=== PATIENT | female | born 1965 | race Caucasian/White ===

== ENCOUNTER 2025-02-05 10:27 | Emergency (ER) | payer OTHER, SELFPAY ==
[2025-02-05 10:31] VITALS: BP 156/78; PULSE 87; TEMP 36.9; O2SAT 99; BMI 31.5
--- NOTE | 2025-02-05 10:39 | ED.GENADUL1 ---
HPI HPI - General Adult General Chief complaint: Nausea/Vomiting/Diarrhea Stated complaint: ABDOMINAL PAIN Time Seen by Provider: 02/05/25 10:32 Source: patient Mode of arrival: walk-in History of Present Illness HPI narrative: 59-year-old female presents to the emergency department for nausea vomiting and diarrhea. This began 3 days ago and she has had a lot of liquid diarrhea. No hematemesis or melena or hematochezia. No recent hospitalizations or antibiotic usage. Nobody at work and nobody in her home is ill either. Related Data Home Medications ?Medication ?Instructions ?Recorded ?Confirmed levothyroxine 50 mcg tablet 50 mcg PO QAM 02/05/25 02/05/25 liothyronine 5 mcg tablet 10 mcg PO QAM 02/05/25 02/05/25 lisinopril 10 1 tab PO QAM 02/05/25 02/05/25 mg-hydrochlorothiazide 12.5 mg tablet Previous Rx's ?Medication ?Instructions ?Recorded dicyclomine 10 mg capsule 10 mg PO QID PRN abdominal pain 02/05/25 #20 caps Allergies Allergy/AdvReac Type Severity Reaction Status Date / Time No Known Drug Allergies Allergy Verified 02/05/25 10:34 Review of Systems ROS Narrative A ten point review of systems is negative except as noted above. [facility] Medical History (Updated 02/05/25 @ 11:57 by Alek Odonnell MD) Ronni's disease ?E06.3 - Autoimmune thyroiditis (ICD-10) Social History Little interest or pleasure in doing things: not at all Feeling down, depressed, or hopeless: not at all Exam Narrative Exam Narrative: Nurses note and vital signs reviewed and patient is not hypoxic. General: The patient appears well and in no apparent distress. Patient is resting comfortably on cart. Skin: Warm, dry, no pallor noted. There is no rash noted. Head: Normocephalic, atraumatic Eye: Normal conjunctiva, no drainage Ears, Nose, Mouth, and Throat: oral mucosa is slightly dry. Nares patent. Cardiovascular: Regular Rate and Rhythm Respiratory: Patient is in no distress, no accessory muscle use, lungs are clear to auscultation, no wheezing, rales or rhonchi Back: non-tender GI: Soft with minimal tenderness and no distention Musculoskeletal: The patient has no evidence of calf tenderness, no pitting edema, symmetrical pulses noted bilaterally Neurological: A&O, normal speech Psychiatric: Cooperative Constitutional Vital Signs, click to edit/add: Last Vital Signs Temp 98.4 F 02/05/25 10:31 Pulse 87 02/05/25 10:31 Resp 18 02/05/25 10:31 BP 118/64 02/05/25 11:05 Pulse Ox 99 02/05/25 10:31 O2 Del Method Room Air 02/05/25 10:31 Course Vital Signs Vital signs: Vital Signs Temperature 98.4 F 02/05/25 10:31 Pulse Rate 87 02/05/25 10:31 Respiratory Rate 18 02/05/25 10:31 Blood Pressure 156/78 H 02/05/25 10:31 Pulse Oximetry 99 02/05/25 10:31 Oxygen Delivery Method Room Air 02/05/25 10:31 Temperature 98.4 F 02/05/25 10:31 Pulse Rate 87 02/05/25 10:31 Respiratory Rate 18 02/05/25 10:31 Blood Pressure 118/64 02/05/25 11:05 Pulse Oximetry 99 02/05/25 10:31 Oxygen Delivery Method Room Air 02/05/25 10:31 Medical Decision Making MDM Narrative Medical decision making narrative: Blood work is essentially normal and she was given IV fluids. She was unable to provide us with a stool specimen at this point. She is able to be discharged home and was prescribed Bentyl. Treatment diagnosis and follow-up were discussed with the patient. Differential Diagnosis Differential Diagnosis: Dehydration, gastroenteritis, food poisoning Lab Data Lab results reviewed: Yes I reviewed the patient's lab results Labs: Lab Results 02/05/25 Range/Units 10:47 WBC 7.6 (4.0-11.0) 10^3/uL RBC 4.28 (4.20-5.40) 10^6/uL Hgb 11.5 L (12.0-16.0) g/dL Hct 34.9 L (36.0-48.0) % MCV 81.5 (81.0-99.0) fL MCH 26.9 (26.7-34.0) pg MCHC 33.0 (29.9-35.2) g/dL RDW 13.1 (11.0-15.0) % Plt Count 349 (150-450) 10^3/uL MPV 9.4 L (9.5-13.5) fL Neut % (Auto) 75.1 H (43.0-75.0) % Lymph % (Auto) 14.4 L (20.5-60.0) % [place]ata[place] % (Auto) 8.2 (1.7-12.0) % Eos % (Auto) 1.7 (0.9-7.0) % Baso % (Auto) 0.3 (0.2-2.0) % Neut # (Auto) 5.7 (1.4-6.5) 10^3/uL Lymph # (Auto) 1.1 L (1.2-3.8) 10^3/uL [place] # (Auto) 0.6 (0.3-0.8) 10^3/uL Eos # (Auto) 0.1 (0.0-0.7) 10^3/uL Baso # (Auto) 0.0 (0.0-0.1) 10^3/uL Abs Immat Gran (auto) 0.02 (0.00-0.03) 10^3/uL Imm/Tot Granulo (auto) 0.3 (0.0-0.5) % Sodium 136 (136-145) mmol/L Potassium 3.3 L (3.5-5.1) mmol/L Chloride 97 L (98-107) mmol/L Carbon Dioxide 26.8 (21.0-32.0) mmol/L Anion Gap 15.5 BUN 10.0 (7.0-18.0) mg/dL Creatinine 0.85 (0.55-1.02) mg/dL Est GFR ( Amer) >60 (>=60 mL/min/1.73m^2) Est GFR (Non-Af Amer) >60 (>=60 mL/min/1.73m^2) BUN/Creatinine Ratio 11.8 Glucose 92 (74-106) mg/dL Calcium 9.2 (8.5-10.1) mg/dL Discharge Plan Discharge Chief Complaint: Nausea/Vomiting/Diarrhea Clinical Impression: Gastroenteritis Patient Disposition: Home, Self-Care Time of Disposition Decision: 11:57 Condition: Good Mode of Transportation: Private Vehicle Prescriptions / Home Meds: New dicyclomine 10 mg capsule 10 mg PO QID PRN (Reason: abdominal pain) Qty: 20 0RF No Action liothyronine 5 mcg tablet 10 mcg PO QAM lisinopril-hydrochlorothiazide 10-12.5 mg tablet 1 tab PO QAM levothyroxine 50 mcg tablet 50 mcg PO QAM Print Language: Uzbek Instructions: Acute Diarrhea (ED) Referrals: GARTH GUAMAN [Primary Care Provider, Unknown] - 1 week
--- OUTSIDE RECORDS SUMMARY | 2025-02-05 10:42 | XMS_ITS | Clinical Summary ---
Author Organization [employer] Address [id number] [address] [place] [address] Care Team Providers Care Ticker Installer Name Role Phone Tramaine Faust APRN-MANAGER FILM Primary Care Provider + Allergies No known active allergies Medications irasjjz-vmja-yjkrn- oreg-capryl 100 mg-150 mg- 50 mg-150 mg capsule Take by mouth. Active B-complex with vitamin C tablet Take 1 tablet by mouth in the morning. Active ra-yrs-F-glutamin-l ysine-hb124 (A[place]ORNE, LYSINE HCL,) 1,000-50 mg tablet, effervescent Take by mouth. Active magnesium (MAGTAB) 84 mg tablet extended release CR tablet Take 1 tablet (84 mg total) by mouth in the morning. Active liothyronine (CYTOMEL) 5 MCG tabletIndications:A cquired hypothyroidism Take 2 tablets (10 mcg total) by mouth in the morning. 180 tablet 1 5 Active lisinopril-hydroCHL OROthiazide (PRINZIDE,ZESTORETI C) 10-12.5 mg per tabletIndications:E ssential hypertension TAKE 1 TABLET BY MOUTH EVERY DAY IN THE MORNING 90 tablet 1 5 Active levothyroxine (SYNTHROID, LEVOTHROID) 50 MCG tabletIndications:A cquired hypothyroidism Take 1 tablet (50 mcg total) by mouth in the morning. 90 tablet 1 5 Active Active Problems Problem Noted Date Diagnosed Date Hypothyroidism 03/09/2022 Malignant neoplasm of cervix 03/09/2022 Visceral obesity 11/08/2021 Obesity (BMI 30.0-34.9) 11/08/2021 Atrophic skin 11/08/2021 Encounters Date Type Department Care Team Description 01/07/2025 Orders Only [facility] [address] [place] [address] Tatiana Bettencourt CMA Encounter for screening mammogram for malignant neoplasm of breast 12/19/2024 Results Follow-Up [facility] [address] [place] [address] Tramaine Faust, SENIOR MARKETING ASSOCIATE-JEFF TSH, Hemoglobin A1c, Lipid profile, Additional followed-up results: 3 11/11/2024 Telephone [facility] [address] [place] [address] Mitzi Gardiner CMA 11/10/2024 9:00 AM EDT Office Visit [facility] [address] [place] [address] Zora Cardona, SENIOR MARKETING ASSOCIATE-MANAGER FILM Annual physical exam (Primary Dx); Blood tests for routine general physical examination; Acquired hypothyroidism; Essential hypertension; Encounter for screening mammogram for malignant neoplasm of breast; Special screening for malignant neoplasm of colon 11/10/2024 Travel from Last 3 Months Immunizations Immunization Administration Dates Next Due Influenza, Im Flucelvax (Pf) 03/07/2017 Influenza, Injectable, Quadrivalent 03/20/2018,1 Influenza, Injectable, quadrivalent (PF) 023,07/14/2021 Influenza, Recombinant, Quad rivalent, Injectable, Preserv 02/24/2022 Influenza, Unspecified 03/01/2007 Zoster Vaccine Recombinant 09/14/2022,02/24/2022 Family History Medical History Relation Name Comments Other Brother Depression Daughter 1 Depression Daughter 2 Depression Daughter 3 Arthritis Father Diabetes Father Hyperlipidemia Father Hypertension Father Colon cancer Mother Hyperlipidemia Mother Colon polyps Sister 1 Diabetes Sister 1 Hypertension Sister 1 No Known Problems Sister 2 No Known Problems Son Relation Name Status Comments Brother Alive Blood Cancer Daughter 1 Alive Daughter 2 Alive Daughter 3 Alive Father Alive Mother Sister 1 Alive Sister 2 Alive Son Alive Social History Tobacco Use Types Packs/Day Years Used Date Smoking Tobacco: Never Smokeless Tobacco: Never Alcohol Use Standard Drinks/Week Comments Yes 5 (1 standard drink = 0.6 oz pur e alcohol) Social Connection and Isolat ion Panel [NHANES] Answer Date Recorded In a typical week, how many times do you talk on the phone with family, friends, or neighbors? Twice a week 03/09/2022 How often do you get togethe r with friends or relatives? Three times a week 03/09/2022 How often do you attend chur [employer] or faith services? More than 4 times per year 03/09/2022 Do you belong to any clubs o r organizations such as jain groups, unions, fraternal or athletic groups, or school groups? No 03/09/2022 How often do you attend meet ings of the clubs or organizations you belong to? Never 03/09/2022 Are you , , di vorced, , never , or living with a partner? 03/09/2022 AUDIT-C Answer Date Recorded Q1: How often do you have a drink containing alc ohol? 2-4 times a month 03/09/2022 Q2: How many drinks containi ng alcohol do you have on a typical day when you are drinking? 1 or 2 03/09/2022 Q3: How often do you have si x or more drinks on one occasion? Never 03/09/2022 Overall Financial Resource Strain (CARDIA) Answe r Date Recorded How hard is it for you to pa y for the very basics like food, housing, medical care, and heating? Not very hard 03/09/2022 PHQ-2 Answer Date Recorded Total Score 0 11/10/2024 [facility] - Occupational Stress Questionnaire Answer Date Recorded Do you feel stress - tense, restless, nervous, or anxious, or unable to sleep at night because your mind is troubled all the time - these days? To some extent 03/09/2022 Exercise Vital Sign Answer Date Recorde d On average, how many days pe r week do you engage in moderate to strenuous exercise (like a brisk walk)? 4 days 03/09/2022 On average, how many minutes do you engage in exercise at this level? 30 min 03/09/2022 PRAPARE - Transportation Answer Date Re corded In the past 12 months, has l ack of transportation kept you from medical appointments or from getting medications? No 02/19 In the past 12 months, has l ack of transportation kept you from meetings, work, or from getting things needed for daily living? No 03/09/2022 Childcare Answer Date Recorded Do problems getting child ca re make it difficult for you to work or study? No 03/09/2022 Employment Answer Date Recorded Do you need help finding a [employer] career center and/or a training program? No 03/09/2022 Hunger Screening Answer Date Recorded Within the past 12 months we worried whether our food would run out before we got money to buy more. Never True 11/10/2024 Within the past 12 months th e food we bought just didn't last and we didn't have money to get more. Never True 11/10/2024 Purpose - Life Answer Date Recorded I have a purpose and direction in my life. Agree 03/09/2022 Education Answer Date Recorded What is the highest level of school you have completed or the highest degree you have received? Master's degree (e.g., MA, MS, Griselda, MEd, PRIMARY SCHOOL TEACHER, JOYCE) 11/30/2020 Comments Unknown Sex and Gender Information Value Date Recorded Sex Assigned at Female 07/10/2021 10:33 AM EST Legal Sex Female 12:25 PM EDT Gender Identity Female 07/10/2021 10:33 AM EST Sexual Orientation Bisexual 07/10/2021 10 :33 AM EST Last Filed Vital Signs Vital Sign Reading Time Taken Comments Blood Pressure 100/60 11/10/2024 8:56 AM EDT Pulse 83 11/10/2024 8:56 AM EDT Temperature 36.9 C (98.4 F) 11/10/2024 8:56 AM EDT Respiratory Rate 18 11/10/2024 8:56 AM EDT Oxygen Saturation 99% 11/10/2024 8:56 AM EDT Inhaled Oxygen Concentration - - Weight 79.9 kg (176 lb 3.2 oz) 11/10/2024 8:56 A M EDT Height 157.5 cm (5' 2.01 ) 11/10/2024 8:56 AM ED T Body Mass Index 32.22 11/10/2024 8:56 AM EDT Plan of Treatment Health Maintenance Due Date Last Done Comments DTaP,Tdap and Td Vaccines (1 - Tdap) 1982 COVID-19 Vaccine (5 - 2024-2 6 season) 2025 02/24/2022, 03/25/2021, 07/23/2020, Additional history exists Influenza Vaccine 01/19/2025 04/11/2023, , 07/14/2021, Additional history exists Adult BMI Follow Up Plan 11/10/2025 11/10/2024 Adult BMI Screening 11/10/2025 11/10/2024 Depression Screening 11/10/2025 11/10/2024 Tobacco Screening 11/10/2025 11/10/2024 Mammogram 01/07/2026 01/07/2025, 12/19, 01/11/2021, Additional history exists Pap Smear 04/17/2026 04/17/2023, 04/17/2023 Colonoscopy 01/11/2031 01/11/2021, 12, 05/19/2015 Zoster (Shingles) Vaccine Completed 09/14/2022, 11/2021 Medical Devices Not on file Procedures Procedure Name Priority Date/Time Associated Diagnosis Comments MAMM SCREENING BILATERAL W CAD Routine 01/07/2025 4:03 PM EDT Encounter for screening mammogram for malignant neoplasm of breast COLOGUARD NON-[place] Routine 12/12/2024 6:15 AM EDT Special screening for malignant neoplasm of colon COMPREHENSIVE METABOLIC PANEL Routine 11/10/2024 9:07 AM EDT Blood tests for routine general physical examination CBC WITH AUTO DIFFERENTIAL Routine 11/10/2024 9:07 AM EDT Blood tests for routine general physical examination LIPID PROFILE Routine 11/10/2024 9:07 AM EDT Blood tests for routine general physical examination HEMOGLOBIN A1C Routine 11/10/2024 9:07 AM EDT Blood tests for routine general physical examination TSH Routine 11/10/2024 9:07 AM EDT Blood tests for routine general physical examination HIGH RISK HPV W/JUVE Routine 04/17/2023 5:43 AM EST Encounter for gynecological examination (general) (routine) without abnormal findings Encounter for screening for malignant neoplasm of vagina HM COLONOSCOPY Routine 01/11/2021 from Last 3 Months or Most Recently Relevant to Health Maintenance Results * Mammography screening bilateral with CAD (01/07/2025 4:03 PM EDT) Anatomical Region Laterality Modality Breast Bilateral Mammography us Zora Cardona APRN-MANAGER FILM IM MAMMOGRAPHY ORDE RABROCIO Final Result * Cologuard Non[facility] (12/12/2024 6:15 AM EDT) EXTERNAL COLOGUARD Negative Negative 2024 8:23 AM EDT [employer] [facility] (CLIA #:[id number]) Comment: The Cologuard (TM) test was performed on this specimen. NEGATIVE TEST RESULT. A negative Cologuard result indicates a low likelihood that a colorectal cancer (CRC) or advanced adenoma (adenomatous polyps with more advanced pre-malignant features) is present. The chance that a person with a negative Cologuard test has a colorectal cancer is less than 1 in 1500 (negative predictive value >99.9%) or has an advanced adenoma is less than 5.3% (negative predictive value 94.7%). These data are based on a prospective cross-sectional study of 10,000 individuals at average risk for colorectal cancer who were screened with both Cologuard and colonoscopy. (Ovidio Fuller. et al, N Engl J Med 2014;370(14):1286- 1297) The normal value (reference range) for this assay is negative. COLOGUARD RE-SCREENING RECOMMENDATION: Periodic colorectal cancer screening is an important part of preventive healthcare for asymptomatic individuals at average risk for colorectal cancer. Following a negative Cologuard result, the [place] [employer] Society and U.S. Multi-Society Task Force screening guidelines recommend a Cologuard re-screening interval of 3 years. References: [place] [employer] Guideline for Colorectal Cancer Screening: https://www.cancer.org/cancer/cdqpn-ttczaj-otlldd/lkghwuqzt-sfzalwhxf-dhqyyib/ac s-rec ommendations.html.; Todd MENDEZ, Anam BRADSHAW, Peña PAIGE, Colorectal Cancer Screening: Recommendations for Physicians and Patients from the U.S. Multi-Society Task Force on Colorectal Cancer Screening , Am J Gastroenterology 2017; 112:3378-2695. TEST DESCRIPTION: Composite algorithmic analysis of stool DNA-biomarkers with hemoglobin immunoassay. Quantitative values of individual biomarkers are not reportable and are not associated with individual biomarker result reference ranges. Cologuard is intended for colorectal cancer screening of adults of either sex, 45 years or older, who are at average-risk for colorectal cancer (CRC). Cologuard has been approved for use by the U.S. FDA. The performance of Cologuard was established in a cross sectional study of average-risk adults aged 50-84. Cologuard performance in patients ages 45 to 49 years was estimated by sub-group analysis of near-age groups. Colonoscopies performed for a positive result may find as the most clinically significant lesion: colorectal cancer [4.0%], advanced adenoma (including sessile serrated polyps greater than or equal to 1cm diameter) [20%] or non- advanced adenoma [31%]; or no colorectal neoplasia [45%]. These estimates are derived from a prospective cross-sectional screening study of 10,000 individuals at average risk for colorectal cancer who were screened with both Cologuard and colonoscopy. (Ovidio Couch et al, N Engl J Med 2014;370(14):6328-9194.) Cologuard may produce a false negative or false positive result (no colorectal cancer or precancerous polyp present at colonoscopy follow up). A negative Cologuard test result does not guarantee the absence of CRC or advanced adenoma (pre-cancer). The current Cologuard screening interval is every 3 years. ([place] [employer] Society and U.S. Multi-Society Task Force). Cologuard performance data in a 10,000 patient pivotal study using colonoscopy as the reference method can be accessed at the following location: www.[facility]/results. Additional description of the Cologuard test process, warnings and precautions can be found at www.cologuard.com. Stool specimen (specimen) Rectum structure / Unknown 12/12/2024 6:15 AM EDT 12/13/2024 10:53 AM EDT us Zora Cardona SENIOR MARKETING ASSOCIATE-MANAGER FILM LAB ORDERABLES Camelia arroyo Result [employer] [facility] (CLIA #:[id number]) [place] [address], [place] [phone] * CBC auto differential (11/10/2024 9:07 AM EDT) WBC 4.4 4 - 11 x10E9/L 11/10/2024 6:02 PM EDT [facility] RBC Count 4.61 3.8 - 5.2 X10E12/L 11/10/2024 6:02 PM EDT [facility] Hemoglobin 13.1 11.7 - 15.5 g/dL 11/10/2024 6:02 PM EDT [facility] Hematocrit 39.3 35 - 47 % 11/10/2024 6:02 PM EDT [facility] MCV 85 80 - 100 fL 11/10/2024 6:02 PM EDT [facility] MCH 28.4 27 - 34 pg 11/10/2024 6:02 PM EDT [facility] MCHC 33.2 32 - 36 g/dL 11/10/2024 6:02 PM EDT [facility] RDW 13.6 11.5 - 15 % 11/10/2024 6:02 PM EDT [facility] Platelet Count 272 150 - 450 X10E9/L 11/10/2024 6:02 PM EDT [facility] MPV 8.3 7 - 12 fL 11/10/2024 6:02 PM EDT [facility] Neutrophils % 62.8 % 11/10/2024 6:02 PM EDT [facility] Lymphocytes % 25.4 % 11/10/2024 6:02 PM EDT [facility] Monocytes % 9.4 % 11/10/2024 6:02 PM EDT [facility] Eosinophils % 1.6 % 11/10/2024 6:02 PM EDT [facility] Basophils % 0.8 % 11/10/2024 6:02 PM EDT [facility] Neutrophils Absolute (A) 2.8 1.5 - 6.6 10*3/uL 11/10/2024 6:02 PM EDT [facility] Lymphocytes Absolute 1.1 1.0 - 3.5 10*3/uL 11/10/2024 6:02 PM EDT [facility] Monocytes Absolute 0.4 0.0 - 0.9 10*3/uL 11/10/2024 6:02 PM EDT [facility] Eosinophils Absolute 0.1 0.0 - 0.4 10*3/uL 11/10/2024 6:02 PM EDT [facility] Basophils Absolute 0.0 0.0 - 0.2 10*3/uL 11/10/2024 6:02 PM EDT [facility] Differential Type AUTOMATED DIFFERENTIAL 11/10/2024 6:02 PM EDT [facility] Blood Venous blood / Unknown 11/10/2024 9:07 AM EDT 11/10/2024 9:07 AM EDT us Zora Cardona SENIOR MARKETING ASSOCIATE-MANAGER FILM LAB BLOOD ORDERABLES Final Result [facility] [address] [place] [address], [place] [phone] * (ABNORMAL) TSH (11/10/2024 9:07 AM EDT) TSH 0.09(L) 0.49 - 4.67 uIU/mL 11/10/2024 6:20 PM EDT [facility] Blood Venous blood / Unknown 11/10/2024 9:07 AM EDT 11/10/2024 9:07 AM EDT Zora Cardona APRN-MANAGER FILM LAB BLOOD ORDERABLES Final Result [facility] [address] [place] [address], [place] [phone] * Hemoglobin A1c (11/10/2024 9:07 AM EDT) HEMOGLOBIN A1C 5.1 4.4 - 5.6 % 11/10/2024 6:22 PM EDT [facility] Comment: ADA Guidelines Result HgbA1c Normal : less than 5.7 % Prediabetes : 5.7 % to 6.4 % Diabetes : > 6.4 % Use with caution in patients with abnormal hemoglobin variants as the half-life of red blood cells and in vivo glycation rates are affected. EST. AVERAGE GLUCOSE 100 mg/dL 11/10/2024 6:22 PM EDT [facility] Blood Venous blood / Unknown 11/10/2024 9:07 AM EDT 11/10/2024 9:07 AM EDT Zora Cardona APRN-MANAGER FILM LAB BLOOD ORDERABLES Final Result [facility] [address] [place] [address], [place] [phone] * (ABNORMAL) Lipid profile (11/10/2024 9:07 AM EDT) CHOLESTEROL 215(H) 150 - 200 mg/dL 11/10/2024 6:13 PM EDT [facility] TRIGLYCERIDE 66 27 - 150 mg/dL 11/10/2024 6:13 PM EDT [facility] HDL CHOLESTEROL 70 >39 mg/dL 6:13 PM EDT [facility] Comment: HDL <40 mg/dL - High Risk HDL > or = 40mg/dL- Desirable HDL >60 mg/dL - Negative Risk LDL (CALC) 132(H) <130 mg/dL 11/10/2024 6:13 PM EDT [facility] Comment: LDL <100 mg/dL - Desirable LDL >160 mg/dL - High Risk CHOLESTEROL:HDL 3.1 1.0 - 5.0 6:13 PM EDT [facility] VERY LOW LIPOPROTEIN 13 0 - 30 mg/dL 11/10/2024 6:13 PM EDT [facility] Blood Venous blood / Unknown 11/10/2024 9:07 AM EDT 11/10/2024 9:07 AM EDT us Zora Cardona SENIOR MARKETING ASSOCIATE-MANAGER FILM LAB BLOOD ORDERABLES Final Result [facility] [address] [place] [id number], [place] [phone] * Comprehensive metabolic panel (11/10/2024 9:07 AM EDT) SODIUM 140 134 - 146 mmol/L 11/10/2024 6:13 PM EDT [facility] POTASSIUM 3.8 3.5 - 5.0 mmol/L 11/10/2024 6:13 PM EDT [facility] CHLORIDE 102 98 - 109 mmol/L 11/10/2024 6:13 PM EDT [facility] CARBON DIOXIDE 29 22 - 32 mmol/L 11/10/2024 6:13 PM EDT [facility] ANION GAP 9 5 - 15 mmol/L 11/10/2024 6:13 PM EDT [facility] BLOOD UREA NITROGEN 11 5 - 27 mg/dL 11/10/2024 6:13 PM EDT [facility] CREATININE 0.76 0.40 - 1.00 mg/dL 11/10/2024 6:13 PM EDT [facility] Comment:METHOD TRACEABLE TO IDMS STANDARD GLUCOSE 89 65 - 99 mg/dL 11/10/2024 6:13 PM EDT [facility] CALCIUM 9.6 8.5 - 10.5 mg/dL 11/10/2024 6:13 PM EDT [facility] TOTAL PROTEIN 7.0 6.0 - 8.0 g/dL 11/10/2024 6:13 PM EDT [facility] ALBUMIN 4.1 3.2 - 5.3 g/dL 11/10/2024 6:13 PM EDT [facility] ALKALINE PHOSPHATASE 40 39 - 130 U/L 11/10/2024 6:13 PM EDT [facility] AST 25 <=41 U/L 11/10/2024 6:13 PM EDT [facility] ALT 12 <=31 U/L 11/10/2024 6:13 PM EDT [facility] BILIRUBIN,TOTAL 0.5 0.3 - 1.2 mg/dL 11/10/2024 6:13 PM EDT [facility] EGFR Non-Race Dependent 89 >=60 ml/min/1.7 3sq.m 11/10/2024 6:13 PM EDT [facility] Comment: Reported eGFR is based on the CKD-EPI 2020 equation that does not use a race coefficient. Blood Venous blood / Unknown 11/10/2024 9:07 AM EDT 11/10/2024 9:07 AM EDT us Zora Cardona SENIOR MARKETING ASSOCIATE-MANAGER FILM LAB BLOOD ORDERABLES Final Result [facility] [address] [place] [address], [place] [phone] * High risk HPV w/juve (04/17/2023 5:43 AM EST) Hpv specimen type ThinPrep 04/18/2023 5:43 AM EST [facility] Hpv 16 Negative Negative^N egative 04/18/2023 1:27 PM EST [facility] Hpv 18 Negative Negative^N egative 04/18/2023 1:27 PM EST [facility] Other high risk hpv Negative Negative^N egative 04/18/2023 1:27 PM EST [facility] Comment: HPV types 31,33,35,39,45,52,56,58,59,66 and 68 DNA were undetectable. THINP 04/17/2023 5:43 AM EST 04/18/2023 5:44 AM EST us Tammy Cramer SENIOR MARKETING ASSOCIATE-MEDIUM CYCLE SALESPERSON LAB BLOOD ORDERABLES Final Result [id number] [facility], [place] [address] [facility] [address] [place] [address], [address] [place] [address] * COLONOSCOPY (01/11/2021) us Scanning Provider External HEALTH MAINTENANCE Fi nal Result MANUALLY TRANSCRIBED RESULTS from Last 3 Months or Most Recently Relevant to Health Maintenance Insurance [employer] Care Teams Ticker Installer Relationship Specialty Start Date End Date Tramaine Faust, SENIOR MARKETING ASSOCIATE-MANAGER FILM [address] [place] [address] PCP - General Internal Medicine 8/1/25
--- OUTSIDE RECORDS SUMMARY | 2025-02-05 10:42 | XMS_ITS | Encounter Summary ---
Author Organization [employer] tem Address [id number] [address] [place] [address] Care Team Providers Care Training Generalist Name Role Phone CedandieTramaine davison BUILDING CLEANER-LEAD CAREGIVER Primary Care Provider + Encounter Details Date Type Department Care Team (Late st Contact Info) Description 01/07/2025 Orders Only [facility] [address] [place] [address] Tatiana Bettencourt CMA Encounter for screening mammogram for malignant neoplasm of breast Social History Tobacco Use Types Packs/Day Years [...] 03/09/2022 How often do you attend chur ch or worship services? More than 4 times per year 03/09/2022 Do you belong to any clubs o r organizations such as latter day groups, unions, fraternal or athletic groups, or [...] Answer Date Recorded Total Score 0 11/10/2024 [facility] Health - Occupational Stress Questionnaire Answer Date [...] Recorded Do you need help finding a [place] career center and/or a training program? No [...] Master's degree (e.g., MA, MS, Griselda, MEd, GLASS ENAMEL MIXER, JOYCE) 11/30/2020 Comments Unknown Sex and Gender Information Value Date Recorded Sex Assigned at Female 07/10/2021 10:33 AM EST Legal Sex Female 12:25 PM EDT Gender Identity Female 07/10/2021 10:33 AM EST Sexual Orientation Bisexual 07/10/2021 10 :33 AM EST documented as of this encounter Plan of Treatment Not on file documented as of this encounter Procedures Procedure Name Priority Date/Time Associated Diagnosis Comments MAMM SCREENING BILATERAL W CAD Routine 01/07/2025 4:03 PM EDT Encounter for screening mammogram for malignant neoplasm of breast documented in this encounter Results * Mammography screening bilateral with CAD (01/07/2025 4:03 PM EDT) Anatomical Region Laterality Modality Breast Bilateral Mammography us Zora Cardona APRN-JEFF IMG MAMMOGRAPHY ROX ROSALES Final Result documented in this encounter Visit Diagnoses Diagnosis Encounter for screening mammogram for malignant neoplasm of breast documented in this encounter Additional Health Concerns Assessment Noted Time PHQ-9 Depression Total Score: 0 11/11/19 8:56 AM EDT A Body Mass Index follow-up plan has been documented for the patient 11/10/2024 9:34 AM EDT documented as of this encounter Care Teams Training Generalist Relationship Specialty Start Date End Date Tramaine Faust APRN-CNP [address] [place] [address] PCP - General Internal Medicine 12/19/24 documented as of this encounter
--- OUTSIDE RECORDS SUMMARY | 2025-02-05 10:42 | XMS_ITS | Clinical Summary ---
Author Organization [facility] Healthcare Address [address] [place] [address] Care Team Providers Care Paper Handler Name Role Phone Unavailable Primary Care Provider Unavailabl e Social History Tobacco Use Types Packs/Day Years Used Date Smoking Tobacco: Never Assessed Comments Unknown Sex and Gender Information Value Date Recorded Sex Assigned at Not on file Legal Sex Female 6:53 PM EDT Gender Identity Not on file Sexual Orientation Not on file Last Filed Vital Signs Vital Sign Reading Time Taken Comments Blood Pressure 121/71 06/26/2019 12:00 PM EST Pulse - - Temperature - - Respiratory Rate - - Oxygen Saturation - - Inhaled Oxygen Concentration - - Weight 81.2 kg (179 lb) 12/21/2020 12:00 PM EDT Height 157.5 cm (5' 2 ) 12/21/2020 12:00 PM EDT Body Mass Index 32.74 12/21/2020 12:00 PM EDT Plan of Treatment Not on file Insurance [employer]
--- OUTSIDE RECORDS SUMMARY | 2025-02-05 10:42 | XMS_ITS | Encounter Summary ---
Author Organization [employer] [facility] Address [id number] [place] [address] Care Team Providers Care Ticket Collector Or Usher Name Role Phone Cedandiesaman Tramaine Mullins PRINTED CIRCUIT BOARDS CONTACT PRINTER-DRAPERY SUPERVISOR Primary Care Provider + Encounter Details Date Type Department Care Team (Late st Contact Info) Description 01/31/2021 Refill [facility] [address] [place] [address] [place] [address] Carmina Beckford, GERARD Acquired hypothyroidism Social History Tobacco Use Types Packs/Day Years Used Date Smoking Tobacco: Never Smokeless Tobacco: Never Alcohol Use Standard Drinks/Week Comments Yes 5 (1 standard drink = 0.6 oz pur e alcohol) Social Connection and Isolation Panel [NHANES] A nswer Date Recorded In a typical week, how many times do you talk on the phone with family, friends, or neighbors? Twice a week 11/30/2020 How often do you get together with friends or re latives? Once a week 11/30/2020 How often do you attend hindu or yarsanism serv ices? Never 11/30/2020 Do you belong to any clubs o r organizations such as hindu groups, unions, fraternal or athletic groups, or school groups? No 11/30/2020 Attends Club or Organization Meetings Not on narcisa e 11/30/2020 Are you , , di vorced, , never , or living with a partner? 11/30/2020 AUDIT-C Answer Date Recorded Q1: How often do you have a drink containing alc ohol? 2-3 times a week 11/30/2020 Q2: How many drinks containi ng alcohol do you have on a typical day when you are drinking? 1 or 2 11/30/2020 Q3: How often do you have si x or more drinks on one occasion? Never 11/30/2020 Overall Financial Resource Strain (CARDIA) Answe r Date Recorded How hard is it for you to pa y for the very basics like food, housing, medical care, and heating? Not very hard 11/30/2020 PHQ-2 Answer Date Recorded Total Score 0 01/10/2021 [facility] - Occupational Stress Questionnaire Answer Date Recorded Do you feel stress - tense, restless, nervous, or anxious, or unable to sleep at night because your mind is troubled all the time - these days? Rather much 11/30/2020 Exercise Vital Sign Answer Date Recorde d On average, how many days pe r week do you engage in moderate to strenuous exercise (like a brisk walk)? 5 days 11/30/2020 On average, how many minutes do you engage in exercise at this level? 30 min 11/30/2020 PRAPARE - Transportation Answer Date Re corded In the past 12 months, has l ack of transportation kept you from medical appointments or from getting medications? No 11/18 In the past 12 months, has l ack of transportation kept you from meetings, work, or from getting things needed for daily living? No 11/30/2020 Childcare Answer Date Recorded Do problems getting child ca re make it difficult for you to work or study? No 11/30/2020 Employment Answer Date Recorded Do you need help finding a [facility] career center and/or a training program? No 11/30/2020 Purpose - Life Answer Date Recorded I have a purpose and direction in my life. Somew hat Agree 11/30/2020 Education Answer Date Recorded What is the highest level of school you have completed or the highest degree you have received? Master's degree (e.g., MA, MS, Griselda, MEd, DEPUTY CORONER INVESTIGATOR, JOYCE) 11/30/2020 Comments Unknown Sex and Gender Information Value Date Recorded Sex Assigned at Female 07/10/2021 10:33 AM EST Legal Sex Female 12:25 PM EDT Gender Identity Female 07/10/2021 10:33 AM EST Sexual Orientation Bisexual 07/10/2021 10 :33 AM EST COVID-19 Exposure Response Date Recorded In the last month, have you been in contact with someone who was confirmed or suspected to have Coronavirus / COVID-19? No / Unsure 01/10/2021 4:20 PM EDT documented as of this encounter Miscellaneous Notes * Telephone Encounter - Carmina Beckford CMA - 01/31/2021 3:32 PM EDT [facility] [place] - Pt needs new script, this med was entered incorrectly, pt takes 2 5cg tablets daily. Please send one month supply to local, and [facility]. * Telephone Encounter - MICHOACANO Hubbard - 01/31/2021 3:32 PM EDT Can you call her pharmacy and verify what dose she was taking prior to coming here. What was recorded in our records was reported by pateint. * Telephone Encounter - Carmina Beckford CMA - 01/31/2021 3:32 PM EDT Pt realized med was entered incorrectly, she takes 2 tablets of this medication once daily. Can youplease send new script? documented in this encounter Plan of Treatment Not on file documented as of this encounter Visit Diagnoses Diagnosis Acquired hypothyroidism Unspecified hypothyroidism documented in this encounter Additional Health Concerns Assessment Noted Time PHQ-9 Depression Total Score: 0 01/11/20 21 3:48 PM EDT A Body Mass Index follow-up plan has been documented for the patient 01/10/2021 5:16 PM EDT documented as of this encounter Care Teams Ticket Collector Or Usher Relationship Specialty Start Date End Date Tramaine Faust, MARCUS-JEFF [address] [place] [address] PCP - General Internal Medicine 12/19/24 documented as of this encounter
--- OUTSIDE RECORDS SUMMARY | 2025-02-05 10:42 | XMS_ITS | Encounter Summary ---
Author Organization [facility] Address [id number] [place] [address] Care Team Providers Care Physicist Acoustics Name Role Phone Cednilesh Tramaine Mullins TOBACCO CUTTER-HEALTH CLUB MANAGER Primary Care Provider + Reason for Visit * Reason Comments Med Refill Encounter Details Date Type Department Care Team (Late st Contact Info) Description 11/16/2022 Refill [facility] [address] [place] [address] Zora Cardona, TOBACCO CUTTER-HEALTH CLUB MANAGER [address] [place] [address] Essential hypertension; Acquired hypothyroidism Social History Tobacco Use Types [...] often do you attend chur ch or restoration services? More than 4 times per year 03/09/2022 Do you belong to any clubs o r organizations such as shinto groups, unions, fraternal or athletic groups, or [...] PHQ-2 Answer Date Recorded Total Score 0 03/22/2022 [facility] Occupat ional Health - Occupational Stress [...] Recorded Do you need help finding a [employer] o[employer] career center and/or a training program? No 03/09/2022 Purpose - Life Answer Date Recorded I have a purpose and direction in my life. Agree 03/09/2022 Education Answer Date Recorded What is the highest level of school you have completed or the highest degree you have received? Master's degree (e.g., MA, MS, Griselda, MEd, ORACLE FORMS DEVELOPER, JOYCE) 11/30/2020 Comments Unknown Sex and Gender Information Value Date Recorded Sex Assigned at Female 07/10/2021 10:33 AM EST Legal Sex Female 12:25 PM EDT Gender Identity Female 07/10/2021 10:33 AM EST Sexual Orientation Bisexual 07/10/2021 10 :33 AM EST documented as of this encounter Plan of Treatment Not on file documented as of this encounter Visit Diagnoses Diagnosis Essential hypertension Unspecified essential hypertension Acquired hypothyroidism Unspecified hypothyroidism documented in this encounter Additional Health Concerns Assessment Noted Time PHQ-9 Depression Total Score: 0 03/22/20 4:28 PM EDT A Body Mass Index follow-up plan has been documented for the patient 06/05/2022 3:09 PM EST documented as of this encounter Care Teams Physicist Acoustics Relationship Specialty Start Date End Date Tramaine Faust, TOBACCO CUTTER-HEALTH CLUB MANAGER [address] [place] [address] PCP - General Internal Medicine 12/19/24 documented as of this encounter
--- OUTSIDE RECORDS SUMMARY | 2025-02-05 10:42 | XMS_ITS | Encounter Summary ---
Author Organization [facility] Address [id number] [address] [place] [address] Care Team Providers Care Customer Account Coordinator Name Role Phone Tramaine Faust BRINE WELL OPERATOR-CENTRAL OFFICE REPAIRER SUPERVISOR Primary Care Provider + Encounter Details Date Type Department Care Team (Late st Contact Info) Description 12/19/2024 Results Follow-Up [facility] - Family Medicine [address] [place] [address] Tramaine Faust, BRINE WELL OPERATOR-CENTRAL OFFICE REPAIRER SUPERVISOR [address] [place] [address] TSH, Hemoglobin A1c, Lipid profile, Additional followed-up results: 3 Social History Tobacco Use Types Packs/Day Years [...] often do you attend chur ch or baptist services? More than 4 times per year 03/09/2022 Do you belong to any clubs o r organizations such as zoroastrianism groups, unions, fraternal or athletic groups, or [...] Answer Date Recorded Total Score 0 11/10/2024 [facility] Occupat ional Health - Occupational [...] Master's degree (e.g., MA, MS, Griselda, MEd, EXECUTIVE ASSISTANT, JOYCE) 11/30/2020 Comments Unknown Sex and Gender Information Value Date Recorded Sex Assigned at Female 07/10/2021 10:33 AM EST Legal Sex Female 12:25 PM EDT Gender Identity Female 07/10/2021 10:33 AM EST Sexual Orientation Bisexual 07/10/2021 10 :33 AM EST documented as of this encounter Plan of Treatment Not on file documented as of this encounter Visit Diagnoses Not on filedocumented in this encounter Additional Health Concerns Assessment Noted Time PHQ-9 Depression Total Score: 0 11/11/19 8:56 AM EDT A Body Mass Index follow-up plan has been documented for the patient 11/10/2024 9:34 AM EDT documented as of this encounter Care Teams Customer Account Coordinator Relationship Specialty Start Date End Date Tramaine Faust, BRINE WELL OPERATOR-CENTRAL OFFICE REPAIRER SUPERVISOR [address] [place] [address] PCP - General Internal Medicine 12/19/24 documented as of this encounter
--- OUTSIDE RECORDS SUMMARY | 2025-02-05 10:42 | XMS_ITS | Encounter Summary ---
Author Organization [employer] [facility] [employer] Address [id number] [place] [address] Care Team Providers Care Windows Server Support Technician Name Role Phone Tramaine Faust Harpreet GRADES 9 THRU 12 VISITING TEACHER-ANIMAL EVISCERATOR Primary Care Provider + Encounter Details Date Type Department Care Team (Late st Contact Info) Description 01/11/2021 Orders Only [facility] [address] [place] [address] [place] [address] External, Scanning Provider Social History Tobacco Use Types Packs/Day Years [...] week 11/30/2020 How often do you attend mosque or yarsani serv ices? Never 11/30/2020 Do you belong to any clubs o r organizations such as mosque groups, unions, fraternal or athletic groups, or [...] Answer Date Recorded Total Score 0 01/10/2021 [facility] Occupat ional Health - Occupational Stress [...] Recorded Do you need help finding a [facility] career center and/or a training program? No 11/30/2020 Purpose - Life Answer Date Recorded I have a purpose and direction in my life. Somew hat Agree 11/30/2020 Education Answer Date Recorded What is the highest level of school you have completed or the highest degree you have received? Master's degree (e.g., MA, MS, Griselda, MEd, STEVEDORING SUPERINTENDENT, JOYCE) 11/30/2020 Comments Unknown Sex and Gender [...] PM EDT documented as of this encounter Plan of Treatment Not on file documented as of this encounter Procedures Procedure Name Priority Date/Time Associated Diagnosis Comments MR BRAIN W WO CONT Routine 01/11/2021 HM COLONOSCOPY Routine 01/11/2021 HM MAMMOGRAPHY Routine 01/11/2021 documented in this encounter Results * HM COLONOSCOPY (01/11/2021) us Scanning Provider External HEALTH MAINTENANCE Fi nal Result MANUALLY TRANSCRIBED RESULTS * HM MAMMOGRAPHY (01/11/2021) Anatomical Region Laterality Modality Other us Scanning Provider External HEALTH MAINTENANCE Fi nal Result * MR brain with and without contrast (01/11/2021) Anatomical Region Laterality Modality Neuro, Head, Head and Neck, Neuro Covera N/A Magnetic Resonance us Scanning Provider External IMG MRI ORDERABLES Fi nal Result documented in this encounter Visit Diagnoses Not on filedocumented in this encounter Additional Health Concerns Assessment Noted Time PHQ-9 Depression Total Score: 0 01/11/20 21 3:48 PM EDT A Body Mass Index follow-up plan has been documented for the patient 01/10/2021 5:16 PM EDT documented as of this encounter Care Teams Windows Server Support Technician Relationship Specialty Start Date End Date Tramaine Faust, GRADES 9 THRU 12 VISITING TEACHER-ANIMAL EVISCERATOR [address] [place] [address] PCP - General Internal Medicine 12/19/24 documented as of this encounter
--- OUTSIDE RECORDS SUMMARY | 2025-02-05 10:42 | XMS_ITS | Encounter Summary ---
Author Organization [facility] Address [id number] [place] [address] Care Team Providers Care Planogrammer Name Role Phone CedTramaine galloway Harpreet SEAT NAILER-STORE DETECTIVE Primary Care Provider + Reason for Visit * Reason Onset Date Comments Med Refill 12/13/2020 Encounter Details Date Type Department Care Team (Late st Contact Info) Description 12/13/2020 Refill [facility] [address] [place] [address] [address] [place] [address] Patsy Arrington MA Acquired hypothyroidism Social History Tobacco Use Types [...] week 11/30/2020 How often do you attend holiness or oriental orthodox serv ices? Never 11/30/2020 Do you belong to any clubs o r organizations such as holiness groups, unions, fraternal or athletic groups, or [...] 11/30/2020 PHQ-2 Answer Date Recorded Total Score 2 11/30/2020 [facility] of Occupat ional Health - Occupational [...] degree you have received? Master's degree (e.g., GARRETT, MS, Griselda, MEd, FURNITURE RESTORER, JOYCE) 11/30/2020 Comments Unknown Sex and Gender [...] have Coronavirus / COVID-19? No / Unsure 12/02/2020 3:13 PM EDT documented as of this encounter Miscellaneous Notes * Telephone Encounter - Patsy Arrington MA - 12/13/2020 8:06 AM EDT Mail order hasn't come yet, it is enroute, could you please send 2 weeks to estefani/ yamileth-pended documented in this encounter Plan of Treatment Not on file documented as of this encounter Visit Diagnoses Diagnosis Acquired hypothyroidism Unspecified hypothyroidism documented in this encounter Additional Health Concerns Assessment Noted Time PHQ-9 Depression Total Score: 2 12/01/19 21 2:08 PM EDT A Body Mass Index follow-up plan has been documented for the patient 12/08/2020 10:32 AM EDT documented as of this encounter Care Teams Planogrammer Relationship Specialty Start Date End Date Tramaine Faust, MARCUS-STORE DETECTIVE [address] [place] [address] PCP - General Internal Medicine 12/19/24 documented as of this encounter
--- OUTSIDE RECORDS SUMMARY | 2025-02-05 10:42 | XMS_ITS | Clinical Summary ---
Author Organization [facility] Address [address], [address] [place] [address] Care Team Providers Care Client Relationship Consultant Name Role Phone Unavailable Primary Care Provider Unavailabl e Social History Tobacco Use Types Packs/Day Years Used Date Smoking Tobacco: Never Assessed Comments Unknown Sex and Gender Information Value Date Recorded Sex Assigned at Not on file Legal Sex Female 4:39 PM EST Gender Identity Not on file Sexual Orientation Not on file Plan of Treatment Not on file
--- OUTSIDE RECORDS SUMMARY | 2025-02-05 10:42 | XMS_ITS | Clinical Summary ---
Author Organization [facility] Address [address] [place] [address] Care Team Providers Care Brake Operator Heavy Duty Name Role Phone Unavailable Primary Care Provider Unavailabl e Allergies No known active allergies Medications Levothyroxine 75 mcg cap Take by mouth once daily. Active liothyronine (CYTOMEL) 5 mcg tablet Take 5 mcg by mouth once daily. Take 2 tablet in the morning daily. Active lisinopril-hydr ochlorothiazide (PRINZIDE,ZESTO RETIC) 10-12.5 mg per tablet Take 1 tablet by mouth once daily. Active Multivitamins-C k-Gkmp-Qteivery (MULTIPLE VITAMIN, WOMENS) tab Take by mouth once daily. Active Magnesium 30 mg tablet Take 30 mg by mouth once daily. Active Family History Medical History Relation Comments Blood Clots Brother Blood Clots Maternal Aunt Breast Cancer Maternal Aunt Heart Attack Maternal Grandfather Ovarian cancer Maternal Grandmother Heart Attack Maternal Uncle Lymphoma Mother Breast Cancer Other 1 Mat 1st cousin;B RCA pos Breast Cancer Other 2 Mat 2nd cousin Breast Cancer Other 3 Mat 2nd cousin Breast Cancer Other 4 Mat Great Aunt Autism Other 5 Pat 1st cousin Stroke Paternal Grandfather brain Aneursym Paternal Grandfather Lung Cancer Paternal Grandmother Relation Status Comments Brother Alive Father Alive Maternal Aunt Maternal Grandfather Maternal Grandmother Maternal Uncle Mother Alive Other 1 Alive Other 2 Other 3 Alive Other 4 Other 5 Alive Paternal Grandfather Paternal Grandmother Sister 1 Alive Sister 2 Alive Social History Tobacco Use Types Packs/Day Years Used Date Smoking Tobacco: Never Smokeless Tobacco: Never Alcohol Use Standard Drinks/Week Comments Yes 1 (1 standard drink = 0.6 oz pur e alcohol) Area Deprivation Index Answer Date Andrea rded National Score (1-100), lower number is lower ri sk Not on file 04/25/2020 State Score (1-10), lower number is lower risk N ot on file 04/25/2020 Data from: https://www.neighborhoodatlas.medicine.[facility]/. Last address used for calculation Not on file 04/25/2020 Comments No Sex and Gender Information Value Date Recorded Sex Assigned at Not on file Legal Sex Female 8:25 AM EST Gender Identity Not on file Sexual Orientation Not on file Last Filed Vital Signs Vital Sign Reading Time Taken Comments Blood Pressure - - Pulse - - Temperature - - Respiratory Rate - - Oxygen Saturation - - Inhaled Oxygen Concentration - - Weight 77.1 kg (170 lb) 01/07/2019 10:37 AM EDT Height 157.5 cm (5' 2 ) 01/07/2019 10:37 AM EDT Body Mass Index 31.09 01/07/2019 10:37 AM EDT Plan of Treatment Health Maintenance Due Date Last Done Comments Anxiety Screening 1981 Depression Screening 1981 HIV Screening 1981 Hepatitis C Screening 1981 DTaP,Tdap,Td Vaccine (1 - Tdap) 1982 Cervical Cancer Screening [address] Colonography 2008 Cologuard (FIT-DNA) 2008 Colonoscopy 2008 Colorectal Cancer Screening 2008 Diabetes Screening 2008 Fecal Occult Blood 2008 Lipid Screening 2008 Sigmoidoscopy 2008 Pneumococcal Vaccine: 50+ (1 of 1 - PCV) 2013 Shingrix Vaccine (1 of 2) 2013 Influenza Vaccine (#1) 2025 8, 03/07/2017, 03/06/2016 RSV Vaccine (1 - 1-dose 75+ series) 2038 Insurance O SUPER[employer] PPO BLUE CARD PPO OOS
--- OUTSIDE RECORDS SUMMARY | 2025-02-05 10:42 | XMS_ITS | Patient Health Record ---
Author Organization [facility] Address [address] [place] [address] Care Team Providers Care Business Reporting Developer Name Role Phone ANAHI SANDRA Primary Care Provider Wilian GILMORE, [facility] Unavailable [phone] Reason For Referral No Information Plan Of Treatment No Information Insurance Providers Payer Name Payer Address Payer Phone Subscriber Number Group Number Insured Name Patient Relationship to Insured Coverage Start Date Coverage End Date Medical Mut-In[employer] mMc[employer] [address] [place], [place] [id number] Payton Joseph Self - patient is the insured
--- OUTSIDE RECORDS SUMMARY | 2025-02-05 10:43 | XMS_ITS | Encounter Summary ---
Author Organization [facility] Address [id number] [address] [place] [address] Care Team Providers Care Painter And Body Work Name Role Phone CedMatias gallowaydenzel Mullins RECREATION SUPERVISOR-COOK APPRENTICE Primary Care Provider + Reason for Visit * Reason Comments Med Refill Encounter Details Date Type Department Care Team (Late st Contact Info) Description 05/18/2021 Refill [facility] [address] [place] [address] Zora Cardona, RECREATION SUPERVISOR-COOK APPRENTICE [address] [place] [address] Essential hypertension Social History Tobacco Use Types Packs/Day Years [...] week 11/30/2020 How often do you attend christian or confucianist serv ices? Never 11/30/2020 Do you belong to any clubs o r organizations such as christian groups, unions, fraternal or athletic groups, or [...] Answer Date Recorded Total Score 0 01/10/2021 [facility] of Occupat ional Health - [...] Master's degree (e.g., MA, MS, Griselda, MEd, PATIENT ACCOUNT SPECIALIST, JOYCE) 11/30/2020 Comments Unknown Sex and Gender [...] Diagnoses Diagnosis Essential hypertension Unspecified essential hypertension documented in this encounter Additional Health Concerns Assessment Noted Time PHQ-9 Depression Total Score: 0 01/11/20 3:48 PM EDT A Body Mass Index follow-up plan has been documented for the patient 01/10/2021 5:16 PM EDT documented as of this encounter Care Teams Painter And Body Work Relationship Specialty Start Date End Date Tramaine Faust, RECREATION SUPERVISOR-COOK APPRENTICE [address] [place] [address] PCP - General Internal Medicine 12/19/24 documented as of this encounter
--- OUTSIDE RECORDS SUMMARY | 2025-02-05 10:43 | XMS_ITS | Clinical Summary ---
Author Organization [facility] Address [address] [place] [address] Care Team Providers Care Lifestyle Coordinator Name Role Phone Zora Cardona CNP Primary Care Provider Unav ailable Allergies No known active allergies Medications B Complex-C tablet Take 1 tablet by mouth daily. Active Synthroid 75 MCG tablet 10/12/2021 Active liothyronine 5 MCG tablet Take 10 mcg by mouth daily. 07/13/2021 Active lisinopril-hydro chlorothiazide 10-12.5 MG tablet 10/22/2021 Active Magnesium Gluconate 550 MG tablet Take 30 mg by mouth daily. Active Multiple Vitamins-Mineral s (Airborne) Tab Effer Take by mouth. Active Active Problems Problem Noted Date Diagnosed Date Obesity (BMI 30.0-34.9) 11/08/2021 Localized adiposity 11/08/2021 Atrophic skin 11/08/2021 Immunizations Immunization Administration Dates Next Due Influenza, injectable, quadrivalent, preservativ e free 07/14/2021 Social History Tobacco Use Types Packs/Day Years Used Date Smoking Tobacco: Former Smokeless Tobacco: Never Alcohol Use Standard Drinks/Week Comments Yes 0 (1 standard drink = 0.6 oz pur e alcohol) Comments Unknown Sex and Gender Information Value Date Recorded Sex Assigned at Not on file Legal Sex Female 2:36 PM EST Gender Identity Not on file Sexual Orientation Not on file Last Filed Vital Signs Vital Sign Reading Time Taken Comments Blood Pressure 104/72 11/08/2021 11:04 AM EDT Pulse 77 11/08/2021 11:04 AM EDT Temperature 36.6 C (97.8 F) 11/08/2021 11:04 AM EDT Respiratory Rate - - Oxygen Saturation - - Inhaled Oxygen Concentration - - Weight 76.2 kg (168 lb) 11/08/2021 11:04 AM EDT Height 157.5 cm (5' 2 ) 11/08/2021 11:04 AM EDT Body Mass Index 30.73 11/08/2021 11:04 AM EDT Plan of Treatment Health Maintenance Due Date Last Done Comments HEPATITIS C VIRUS SCREENING 1963 TETANUS 1963 HIV SCREENING DISCUSSION 1978 TDAP (ADULT) 1982 CERVICAL CANCER SCREENING DISCUSSION 1984 LIPID SCREENING 2003 MAMMOGRAM SCREENING DISCUSSION 2003 COLORECTAL CANCER SCREENING DISCUSSION 2008 PNEUMOCOCCAL VACCINE SERIES (1 of 1 - PCV) 2013 ZOSTER (SHINGLES) VACCINE (1 of 2) 2013 COVID-19 VACCINE ( season) 2025 03/25/2021, 07/23/2020, 07/02/2020 INFLUENZA VACCINE (#1) 2025 , 03/20/2018, 03/07/2017, Additional history exists RSV VACCINE (1 - 1-dose 75+ series) 2038 HEP B VACCINE Aged Out No longer elig ible based on patient's age to complete this topic Insurance Pre Paid Elective Self Pay on file Care Teams Lifestyle Coordinator Relationship Specialty Start Date End Date Zora Cardona, JEFF PCP - General Certified Nurse Practitioner 11/08/21
[2025-02-05 10:56] LABS: Hematocrit 34.9 % (36.0-48.0); Hemoglobin 11.5 g/dL (12.0-16.0); Immature Granulocytes Abs Auto 0.02 10^3/uL (0.00-0.03); Immature Granulocytes Pct Auto 0.3 % (0.0-0.5); Lymphocytes Absolute Auto 1.1 10^3/uL (1.2-3.8); Mean Corpuscular HGB Conc 33.0 g/dL (29.9-35.2); Mean Corpuscular Hemoglobin 26.9 pg (26.7-34.0); Mean Corpuscular Volume 81.5 fL (81.0-99.0); Platelet Count 349 10^3/uL (150-450); Red Blood Count 4.28 10^6/uL (4.20-5.40); White Blood Count 7.6 10^3/uL (4.0-11.0)
[2025-02-05] MEDS: 0.9 % SODIUM CHLORIDE 1,000 ML 1000 ML IV (10:59)
[2025-02-05 11:05] VITALS: BP 118/64
[2025-02-05 11:08] LABS: Anion Gap 15.5; Blood Urea Nitrogen 10.0 mg/dL (7.0-18.0); Calcium 9.2 mg/dL (8.5-10.1); Carbon Dioxide 26.8 mmol/L (21.0-32.0); Chloride 97 mmol/L (98-107); Estimated GFR (African America >60 (>=60 mL/min/1.73m^2); Estimated GFR (Non-African Ame >60 (>=60 mL/min/1.73m^2); Glucose 92 mg/dL (74-106); Potassium 3.3 mmol/L (3.5-5.1); Sodium 136 mmol/L (136-145)
[2025-02-05 12:08] VITALS: BP 110/65; PULSE 68; O2SAT 99
== END 2025-02-05 12:11 | disposition home or self-care (01) ==
PROVIDERS: Emergency Provider Emergency Medicine; PCP Nurse Practitioner
DX: K52.9 Noninfective gastroenteritis and colitis, unspecified (principal)
CPT/HCPCS: 36415; 80048; 85025; 87045; 87046; 87427; 87493; 96361; 96374; 99284; J2405